=== PATIENT | female | born 1955 | race Two or more races ===

== ENCOUNTER 2020-03-22 05:07 | Day surgery (SDC) | payer MEDICARE, OTHER ==
--- NOTE | 2020-03-16 09:00 | Opthalmology H&P ---
Ophthalmology H&P H&P Chief Complaint: decreased vision in left eye HPI Vision Affects Ability to: read, manage personal affairs HPI Narrative Blurry Vision Exam Visual Acuity: OD 20/60 OS 20/80 Tension: OD 15 OS 14 Eye Exam: normal OU: external exam, palpebral fissure-width, marginal reflex distance, levator function, corneas, anterior chambers, fundus exam; findings: lens - NS Cataracts OU Assessment/Plan Treatment Plan: cataract extraction w/ lens implant Goals of Treatment: improvement of vision, enhance quality of life Attestation Attestation The risks and benefits of the surgery as well as alternative procedures were explained to the patient in detail. Matti Cheung MD March 16, 2020 09:00
--- NOTE | 2020-03-16 09:02 | Pre-Procedure Note/Attestation ---
Pre-Procedure Note/Attestation Complete Prior to Procedure Planned Procedure: left Procedure Narrative: Cataract Extraction With IOL Implant Left Eye Indications for Procedure Pre-Operative Diagnosis: Nuclear sclerotic cataract left eye Attestation I attest that I discussed the nature of the procedure; its benefits; risks and complications; and alternatives (and the risks and benefits of such alternatives ), prior to the procedure, with the patient (or the patient's legal lead customer service representative). I attest that, if there was a reasonable possibility of needing a blood transfusion, the patient (or the patient's legal lead customer service representative) was given the [facility] standardized written summary, pursuant to the Ernesto Katy Blood Safety Act ([place] Health and Safety Code # 1645, as amended). I attest that I re-evaluated the patient just prior to the surgery and that there has been no change in the patient's H&P, except as documented below: Matti Cheung MD March 16, 2020 09:02
[2020-03-17 07:25] LABS: BASOPHILS % (AUTO) 1.5 % (0.0-2.0); EOSINOPHILS % (AUTO) 4.2 % (0.0-3.0); HEMATOCRIT 38.4 % (37.0-47.0); HEMOGLOBIN 13.2 G/DL (12.0-16.0); LYMPHOCYTES % (AUTO) 47.3 % (20.0-45.0); MEAN CORPUSCULAR VOLUME 88 FL (80-99); MONOCYTES % (AUTO) 8.2 % (1.0-10.0); NEUTROPHILS % (AUTO) 38.8 % (45.0-75.0); PLATELET COUNT 216 K/UL (150-450); RED BLOOD COUNT 4.35 M/UL (4.20-5.40); RED CELL DISTRIBUTION WIDTH 11.2 % (11.6-14.8); WHITE BLOOD COUNT 5.5 K/UL (4.8-10.8)
[2020-03-17 07:39] LABS: ANION GAP 7 mmol/L (5-15); BLOOD UREA NITROGEN 13 mg/dL (7-18); CALCIUM 8.6 MG/DL (8.5-10.1); CARBON DIOXIDE 28 MMOL/L (21-32); CHLORIDE 106 MMOL/L (98-107); CREATININE 0.8 MG/DL (0.55-1.30); SODIUM 141 MMOL/L (136-145)
[2020-03-17 09:13] LABS: INR 1.1 (0.9-1.1)
--- NOTE | 2020-03-17 15:59 | Pre-op HX & Phy Repo 2 SIG ---
DATE OF ADMISSION: 03/22/2020 DATE OF EVALUATION: 03/17/2020 REASON FOR EVALUATION: I was asked by Dr. Matti Cheung to see this 65-year-old female who is going for elective surgery on the left eye. The patient has had a cataract, left eye, and is scheduled for surgery on March 22, 2020. The patient was evaluated in outpatient procedure, [facility]. PAST MEDICAL HISTORY/REVIEW OF SYSTEMS: Denies history of chest pain, palpitation, heart attack. No lung problem, asthma, bronchitis. Denies history of diabetes. No history of stroke or seizures. Denies history of abdominal pain. No hepatitis. Denies history of anemia or thyroid problem SURGERIES: Not known. FAMILY HISTORY: Father and mother , cause unknown. ALLERGIES: Not known. PRESENT MEDICATIONS: Vitamin daily. HABITS: Denies history of smoke or alcohol habits. PHYSICAL EXAMINATION: GENERAL: Alert, well-developed, well-nourished female in her 60s. No acute distress. VITAL SIGNS: Blood pressure 129/67, temperature 97.5, heart rate is 58, regular, O2 saturation 100% on room air. SKIN: Clear, warm. LYMPH NODES: Not enlarged. HEENT: Head is normocephalic, atraumatic. Ears, clear, no discharge. Eyes, full description per Dr. Matti Cheung. Mouth, clear and moist. Dentures, upper and lower. NECK: Supple. No jugular venous distention. Carotids artery +2. Trachea midline. CHEST: No deformity or asymmetry. LUNGS: Clear to auscultation, percussion. HEART: Sinus rhythm. No ectopy. No murmur. No S3, S4. ABDOMEN: Soft, benign. Liver or spleen not enlarged. No rebound. EXTREMITIES: No edema. No varicose veins. No deformities. NERVOUS SYSTEM: No tremor. No nystagmus. ECG, sinus bradycardia, otherwise normal ECG. LABORATORY: Chemistry, normal limits. CBC, white blood cells 5.5, hemoglobin 13.2, hematocrit 38.4. COVID-19 result pending. IMPRESSION: Dense sclerotic nuclear cataract, left eye. PLAN: Cataract extraction, left eye, with intraocular lens implant per Dr. Matti Cheung, scheduled for March 22, 2020. CONCLUSION: The patient has no previous surgery or any major health problem. EKG shows sinus bradycardia, asymptomatic. Laboratory checked. Patient's condition optimized for surgery. Should be NPO on March 22. Thank you very much Dr. Cheung for privilege to participate in presurgical care of this interesting patient. Ernesto Brown M.D. DR: CARIN JOB#: [id number] CC:
[~2020-03-22] VITALS: Ht 165.1 cm; Wt 80.7 kg
[2020-03-22] VITALS (8 sets, daily range): BP systolic 113–129; BP diastolic 67–78
[~2020-03-22 05:07] MED LIST: Akten 3.5% 1ml Btl LEFT EYE ONE; Cyclopentolate 1% Opth Sol 2ml LEFT EYE SCH; Phenylephrine 10% Opth Soln 5ml LEFT EYE SCH; Proparacaine 0.5% Opth Soln 15ml LEFT EYE ONE; Tetracaine 0.5% Opth 4ml Soln LEFT EYE ONE; Tobramycin Op Soln 0.3% 5ml LEFT EYE SCH; Tropicamide 1% Opth 15ml Soln LEFT EYE SCH
[2020-03-22] MEDS: Tropicamide 1% Opth 15ml Soln LEFT EYE SCH ×3 (05:45→06:08)
[2020-03-22] MEDS: Phenylephrine 10% Opth Soln 5ml LEFT EYE SCH ×3 (05:46→06:08)
[2020-03-22] MEDS: Diclofenac Sod 0.1% Op Soln LEFT EYE SCH ×3 (05:46→06:08)
[2020-03-22] MEDS: Cyclopentolate 1% Opth Sol 2ml LEFT EYE SCH ×3 (05:46→06:08)
[2020-03-22] MEDS ORDERED: Proparacaine 0.5% Opth Soln 15ml LEFT EYE ONE (07:00)
[2020-03-22] MEDS ORDERED: Tetracaine 0.5% Opth 4ml Soln LEFT EYE ONE (07:00)
[2020-03-22] MEDS ORDERED: Akten 3.5% 1ml Btl LEFT EYE ONE (07:00)
[2020-03-22] MEDS ORDERED: BSS 15ml BTL ONE (07:09)
[2020-03-22] MEDS ORDERED: BSS 500ml btl ONE (07:09)
[2020-03-22] MEDS ORDERED: Povidone-Iodine 5% opth solution ONE (07:10)
[2020-03-22] MEDS ORDERED: Sodium Hyaluronate 10 mg/ml 0.85ml ONE (07:10)
[2020-03-22] MEDS ORDERED: Midazolam 2mg/2ml Inj ONE (07:24)
[2020-03-22] MEDS ORDERED: Lidocaine 1% MPF 10mg/ml 5ml ONE (07:25)
[2020-03-22] MEDS ORDERED: LR 1000ml 1,000 ML IVLG SCH (07:36)
--- NOTE | 2020-03-22 07:39 | Anethesia Preoperative Eval ---
Anesthesia Pre-op PMH/ROS General Date of Evaluation: April 03, 2020 Time of Evaluation: 07:41 Anesthesiologist: Fredy ASA Score: ASA 2 Mallampati Score Class I : Soft palate, uvula, fauces, pillars visible Class II: Soft palate, uvula, fauces visible Class III: Soft palate, base of uvula visible Class IV: Only hard plate visible Mallampati Classification: Class I Surgeon: Skye Diagnosis: Nuclear Sclerotic Cornea, OD Surgical Procedure: Cat Ext IOL OD Anesthesia History: none Family History: no anesthesia problems Allergies: Coded Allergies: No Known Allergies (Unverified , 03/16/20) Medications: see eMAR Patient NPO?: Yes Past Medical History HEENT: Reports: cataract (L) Other: obesity - BMI 31 Anesthesia Pre-op Phys. Exam Physician Exam Last Vital Signs Date Time Temp Pulse Resp B/P (MAP) Pulse Ox O2 Delivery O2 Flow Rate FiO2 03/22/20 06:05 Room Air 03/22/20 05:56 97.8 56 18 113/67 98 Constitutional: NAD Neurologic: CN 2-12 intact Cardiovascular: RRR Respiratory: CTA Gastrointestinal: S/NT/ND Airway Exam Mallampati Score: Class I MO: full ROM: full Teeth: intact Anesthesia Pre-op A/P Risk Assessment & Plan Assessment: ASA 2 Plan: GA Status Change Before Surgery: Yuri Mccain MD March 22, 2020 07:39
--- NOTE | 2020-03-22 07:40 | Immediate Post-Op Evaluation ---
Immediate Post-Op Evalulation Immediate Post-Op Evalulation Procedure: Cat ext IOL OD Date of Evaluation: March 22, 2020 Time of Evaluation: 08:49 IV Fluids: 800 LR Blood Products: 0 Estimated Blood Loss: 2 Urinary Output: 0 Blood Pressure Systolic: 129 Blood Pressure Diastolic: 72 Pulse Rate: 61 Respiratory Rate: 16 O2 Sat by Pulse Oximetry: 100 Temperature (Fahrenheit): 98.6 Pain Score (1-10): 2 Nausea: No Vomiting: No Complications 0 Patient Status: awake, reacts, patent, none Hydration Status: adequate Yuri Daniel MD March 22, 2020 07:40
--- NOTE | 2020-03-22 07:40 | 48 Hour Post Anesthesia Eval ---
Post Anesthesia Evaluation Procedure: Cat ext IOL OD Date of Evaluation: March 22, 2020 Time of Evaluation: 11:54 Blood Pressure Systolic: 131 0: 69 Pulse Rate: 63 Respiratory Rate: 18 Temperature (Fahrenheit): 98.5 O2 Sat by Pulse Oximetry: 96 Airway: patent Nausea: No Vomiting: No Pain Intensity: 2 Hydration Status: adequate Cardiopulmonary Status: Stable Mental Status/LOC: patient returned to baseline Follow-up Care/Observations: 0 Post-Anesthesia Complications: 0 Follow-up care needed: ready to discharge Yuri Daniel MD March 22, 2020 07:40
[2020-03-22] MEDS ORDERED: HYDROcodone/Acetamin 5/325 tab ORAL PRN (07:45)
[2020-03-22] MEDS ORDERED: fentaNYL 100 mcg/2 mL IV PRN (07:45)
[2020-03-22] MEDS ORDERED: Meperidine 25mg/0.5ml Inj (FOR RIGORS ONLY) IV PRN (07:45)
[2020-03-22] MEDS ORDERED: DiphenhydrAMINE 50mg/ml Inj IVP PRN (07:45)
[2020-03-22] MEDS ORDERED: Atropine Sulfate 0.4mg/ml inj IVP PRN (07:45)
[2020-03-22] MEDS ORDERED: Midazolam 2mg/2ml Inj IVP PRN (07:45)
[2020-03-22] MEDS ORDERED: LORazepam Inj 2mg/ml 1ml IV PRN (07:45)
[2020-03-22] MEDS ORDERED: HYDROcodone/Acetamin 7.5/325 tab ORAL PRN (07:45)
[2020-03-22] MEDS ORDERED: oxyCODONE HCL/Acetaminophen 5/325mg ORAL PRN (07:45)
[2020-03-22] MEDS ORDERED: Labetalol 5mg/ml 20ml vial IV PRN (07:45)
[2020-03-22] MEDS ORDERED: Hydromorphone 0.5mg/0.5ml inj IVP PRN (07:45)
[2020-03-22] MEDS ORDERED: Metoclopramide 10mg/2ml Inj IVP PRN (07:45)
[2020-03-22] MEDS ORDERED: Ketorolac 30mg Inj IV PRN ×2 (07:45)
[2020-03-22] MEDS ORDERED: LR 1000ml ONE (08:00)
[2020-03-22] MEDS ORDERED: Ciprofloxacin Opth Soln 2.5ml ONE (08:12)
[2020-03-22] MEDS ORDERED: Ciprofloxacin Opth Soln 2.5ml LEFT EYE ONE (11:00)
--- NOTE | 2020-03-23 08:48 | Brief Operative Note ---
Immediate Post Operative Note Operative Note Chief Complaint: Blurry vision Pre-op Diagnosis: Nuclear sclerotic cataract left eye Procedure: Cataract extraction with IOL implant left eye Post-op Diagnosis: Pseudophakia OS Findings: consistent w/pre-op dx studies Surgeon: Matti Cheung MD Anesthesiologist: Yuri Daniel MD Anesthesia: MAC Specimen: none Complications: none Condition: stable Fluids: LR Estimated Blood Loss: none Drains: none Implant(s) used?: Yes - IOL-OS Matti Cheung MD March 23, 2020 08:48
--- NOTE | 2020-03-23 09:06 | Operative Note - PDOC ---
Operative Note Operative Note Date of Operation/Procedure: March 22, 2020 Chief Complaint: Blurry vision Pre-op Diagnosis: Nuclear sclerotic cataract left eye Procedure: Cataract extraction with IOL implant left eye Post-op Diagnosis: Pseudophakia OS Operative Findings: consistent w/pre-op dx studies Surgeon: Matti Cheung MD Anesthesiologist: Yuri Daniel MD Anesthesia: MAC Specimen: none Complications: none Condition: stable Fluids: LR Estimated Blood Loss: none Drains: none Implant(s) used?: Yes - IOL-OS Indications for Procedure Nuclear sclerotic cataract left eye Description of Procedure This patient has been complaining visually significant cataract in the left eye with the best corrected visual acuity of 20/80 under moderate glare conditions worse. The patient complains of difficulties with glare in performing activities of daily living and wants to manage personal affairs with comfort and accuracy and see well enough to move with safety at home and outdoors. The risks, benefits and alternatives of the procedure were discussed with the patient in the office prior to scheduling surgery. All questions from the patient were answered after the surgical procedure was explained in detail. The risks of the procedure as explained to the patient include, but are not limited to, pain, infection, bleeding, loss of vision, retinal detachment, need for further surgery, loss of lens nucleus, double vision, etc. Alternative procedures were discussed which include, to do nothing or seek a second opinion. Informed consent for this procedure was obtained from the patient. The patient was referred to a primary care physician for a cardiopulmonary clearance prior to surgery, after proper evaluation was done patient was properly scheduled for outpatient surgery. The patient was brought to the operating room where the anesthesiologist established I.V. lines and cardiac monitoring leads. Mild intravenous sedation was administered. The patient was then prepared with a 5% solution of povidone -iodine to the conjunctival fornix and lashes, and a 5% solution of povidone- iodine to the lids and periorbital skin. The patient was then draped in the usual sterile fashion. A lid speculum was then placed in the operative eye. A keratome blade was then used to create a biplanar incision into the anterior chamber. Viscoelastics was then instilled into the anterior chamber. A capsulorrhexis was then fashioned with an utrata forceps. BSS and a cannula were then used to hydrodissect and hydro delineate the lens. Paracentesis incision was made at 3 o'clock with sharp blade. The phacoemulsification unit, after being properly adjusted and tested, was then used to emulsify the nucleus. Residual cortical material was aspirated with the irrigation and aspiration unit. Healon was then instilled into the anterior chamber. The corneal wound was then enlarged to the size of the optic with the onur keratome blade. The intraocular lens was then inspected for right power and size and thought to be satisfactory. Then the lens was gently placed in the capsular bag. Positioning within the capsular bag was confirmed by direct visualization. Optic centration was accomplished with a Sinskey hook. Viscoelastics was removed from the anterior chamber using the irrigation and aspiration unit. The corneal wound was then tested for leaks and none were found. The lid speculum were then removed. Sponge and needle counts were correct. An eye patch and shield were placed over the operative eye. The patient was taken to the recovery room in stable condition. There were no complications. The patient tolerated the procedure well. The patient was then transferred to the ambulatory surgery unit in stable and satisfactory condition , was given detailed written instructions and asked to follow up in the office the next day. Matti Cheung MD March 23, 2020 09:06
== END 2020-03-22 10:45 | disposition home or self-care (01) ==
LOC: SUR 05:07
DX: H25.12 Age-related nuclear cataract, left eye (principal); R00.1 Bradycardia, unspecified; E66.9 Obesity, unspecified; Z68.29 Body mass index [BMI] 29.0-29.9, adult
CPT/HCPCS: 36415; 66984; 80048; 85025; 85610; 85730; 93005; 94003; J2250; J2704; J3370; J7120; V2632; 94150